=== PATIENT | female | born 1950 | race Caucasian/White ===

== ENCOUNTER 2024-12-26 09:27 | Day surgery (SDC) | payer BC ==
[2024-12-25 14:28] LABS: Absolute Lymphocytes (CBC) 1.4 K/uL (0.7-4.9); Hematocrit 38.3 % (36.0-45.0); Hemoglobin 12.8 g/dL (12.0-15.0); MCH 31.3 pg (27.0-35.0); MCHC 33.3 g/dL (32.0-36.0); MCV 94.2 fL (80-100); MPV 7.8 fL (7.6-11.3); Nucleated RBC Absolute Count 0.0 (0-0); Nucleated Red Blood Cells % 0.1 % (0-0); RBC Red Blood Cell Count 4.07 M/uL (3.86-4.86); White Blood Count 5.60 thou/uL (4.3-10.9)
[2024-12-25 14:46] LABS: Anion Gap 9.7 mEq/L (5.0-15.0); BUN Blood Urea Nitrogen 13.0 mg/dL (7-18); Glucose Level 96.0 mg/dL (74-106); Potassium 3.7 mEq/L (3.5-5.1)
[2024-12-26] MEDS: Ringers Lactate 1,000 ML IV ONE (10:18)
[2024-12-26] MEDS ORDERED: LIDOCAINE 1% MPF 5 ML VIAL ONE (11:43)
[2024-12-26 14:08] VITALS: BP 134/82; O2SAT 100
[2024-12-26 14:10] VITALS: TEMP 97.6
== END 2024-12-26 13:15 | disposition home or self-care (01) ==
LOC: OR 09:27
PROVIDERS: ATTEND Surgery
PROC: 0DBN8ZX Excision of Sigmoid Colon, Via Natural or Artificial Opening Endoscopic, Diagnostic (ICD-10-PCS; 2024-12-26)
PROC: 0DBH8ZX Excision of Cecum, Via Natural or Artificial Opening Endoscopic, Diagnostic (ICD-10-PCS; principal; 2024-12-26 11:00)
DX: R19.4 Change in bowel habit (principal); K64.8 Other hemorrhoids; K57.30 Diverticulosis of large intestine without perforation or abscess without bleeding; K52.9 Noninfective gastroenteritis and colitis, unspecified; D12.0 Benign neoplasm of cecum; K63.89 Other specified diseases of intestine
CPT/HCPCS: 45385; 45380; 93005; 85025; 80048; 36415; 88305; J2704 ×2; J2003; J7120; 88304